=== PATIENT | male | born 1985 | race African-American/Black ===

== ENCOUNTER 2018-11-12 14:50 | Emergency (ER) | payer SELFPAY ==
[~2018-11-12] VITALS: Ht 170.2 cm; Wt 88.4 kg
[2018-11-12] MEDS ORDERED: SPIR50 PO (15:30)
[2018-11-12] MEDS ORDERED: [UNRECOGNIZED DRUG - CODE] IM (15:30)
[2018-11-12] MEDS ORDERED: ASPI-1182 PO (15:30)
[2018-11-12] MEDS ORDERED: MIRT15 PO (15:30)
[2018-11-12] MEDS ORDERED: HYDR50CA10 PO (15:30)
[2018-11-12] MEDS ORDERED: ATOM25 PO (15:30)
[2018-11-12] MEDS ORDERED: ARIP5TAB8 PO (15:30)
[2018-11-12] MEDS ORDERED: LEVO50 PO (15:30)
[2018-11-12] MEDS ORDERED: AMLO-512 PO (15:30)
[2018-11-12] MEDS ORDERED: BUSP15 PO (15:30)
[2018-11-12 17:06] VITALS: BP 122/84
== END 2018-11-12 17:10 | disposition home or self-care (01) ==
LOC: EMS 14:51
DX: S05.91XA Unspecified injury of right eye and orbit, initial encounter (principal); I10 Essential (primary) hypertension; E03.9 Hypothyroidism, unspecified; F32.9 Major depressive disorder, single episode, unspecified; Y04.0XXA Assault by unarmed brawl or fight, initial encounter; Y93.89 Activity, other specified; Y92.89 Other specified places as the place of occurrence of the external cause; Y99.8 Other external cause status
CPT/HCPCS: 70450; 70486